=== PATIENT | female | born 1985 | race Caucasian/White ===

== ENCOUNTER 2023-01-24 05:22 | Emergency (ER) | payer OTHER ==
[~2023-01-24] VITALS: Ht 167.6 cm; Wt 59.0 kg
[2023-01-24 06:09] VITALS: BP 116/68; TEMP 98.6; O2SAT 99
== END 2023-01-24 06:14 | disposition home or self-care (01) ==
LOC: ER 05:33
DX: Z76.0 Encounter for issue of repeat prescription (principal); Z60.2 Problems related to living alone